=== PATIENT | female | born 1995 | race Caucasian/White ===

== ENCOUNTER 2020-06-20 11:15 | Emergency (ER) | payer OTHER ==
[~2020-06-20] VITALS: Ht 149.9 cm; Wt 54.4 kg
[2020-06-20 11:15] VITALS: BP_SYST 126
[2020-06-20 11:44] VITALS: BP_SYST 126
[2020-06-20] MEDS ORDERED: ACETAMINOPHEN 500 MG TABLET PO ONE (11:45)
== END 2020-06-20 11:44 ==
LOC: SED 11:15
DX: S40.029A Contusion of unspecified upper arm, initial encounter (principal); Y04.0XXA Assault by unarmed brawl or fight, initial encounter; Y93.89 Activity, other specified; Y92.89 Other specified places as the place of occurrence of the external cause; Y99.8 Other external cause status
CPT/HCPCS: 99283

== ENCOUNTER 2022-05-29 02:58 | Emergency (ER) | payer OTHER ==
[~2022-05-29] VITALS: Ht 152.4 cm; Wt 52.2 kg
[2022-05-29 03:02] VITALS: BP_SYST 148
--- NOTE | 2022-05-29 03:05 | NUR ---
Patient to ER chair for evaluation.
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
[2022-05-29] MEDS ORDERED: ACETAMINOPHEN 500 MG TABLET PO ONE (03:15)
--- NOTE | 2022-05-29 03:25 | NUR ---
Pt off to CT with officer.
[2022-05-29 04:18] VITALS: BP_SYST 136
--- NOTE | 2022-05-29 04:18 | NUR ---
Patient given written and verbal discharge instructions and verbalizes understanding. ER MD discussed with patient the results and treatment provided. Patient in stable condition. ID arm band removed. Patient educated on pain management and to follow up with PMD. Opportunity for questions provided and answered.
== END 2022-05-29 04:18 ==
LOC: SED 02:58
DX: S00.12XA Contusion of left eyelid and periocular area, initial encounter (principal); Z79.899 Other long term (current) drug therapy; Y04.0XXA Assault by unarmed brawl or fight, initial encounter; Y93.89 Activity, other specified; Y92.89 Other specified places as the place of occurrence of the external cause; Y99.8 Other external cause status
CPT/HCPCS: 70450-TC; 70486-TC; 76376; 99284

== ENCOUNTER 2022-05-29 15:19 | Emergency (ER) | payer OTHER ==
[~2022-05-29] VITALS: Ht 152.4 cm; Wt 59.0 kg
[2022-05-29 15:20] VITALS: BP_SYST 131
--- NOTE | 2022-05-29 15:20 | NUR ---
BROUGHT IN BY MICHAEL GOLDSMITH AND PLACED TO CHAIR IN HALLWAY. TRIAGED. WILL ASSUME CARE
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
--- NOTE | 2022-05-29 15:35 | NUR ---
DR VIRAMONTES AT BEDSIDE FOR EVALUATION
--- NOTE | 2022-05-29 15:37 | NUR ---
Patient given written and verbal discharge instructions and verbalizes understanding. ER MD discussed with patient the results and treatment provided. Patient in stable condition. ID arm band removed. Rx of NONE given. Patient educated on pain management and to follow up with PMD. Pain Scale 0/10. Opportunity for questions provided and answered. Medication side effect fact sheet provided.
== END 2022-05-29 15:37 ==
LOC: SED 15:19
DX: Z02.89 Encounter for other administrative examinations (principal); I10 Essential (primary) hypertension
CPT/HCPCS: 99283